=== PATIENT | male | born 1960 | race Caucasian/White ===

== ENCOUNTER 2016-11-16 12:40 | Emergency (ER) | payer OTHER ==
[~2016-11-16] VITALS: Ht 167.6 cm; Wt 101.2 kg
[~2016-11-16 12:40] MED LIST: ENOX40SY4 SQ; HYDR-3240 PO; WARF5TAB PO
[2016-11-16 12:42] VITALS: BP 143/92
== END 2016-11-16 14:46 | disposition home or self-care (01) ==
LOC: ED 14:27
DX: S06.0X0A Concussion without loss of consciousness, initial encounter (principal); R41.3 Other amnesia; R41.0 Disorientation, unspecified; Z86.718 Personal history of other venous thrombosis and embolism; Z88.6 Allergy status to analgesic agent; X58.XXXA Exposure to other specified factors, initial encounter; Y93.89 Activity, other specified; Y92.89 Other specified places as the place of occurrence of the external cause; Y99.9 Unspecified external cause status
CPT/HCPCS: 70450; 99284